=== PATIENT | female | born 1960 ===

== ENCOUNTER → 2017-02-27 | Outpatient (CLI) | payer BC ==
[2014-04-27 08:42] VITALS: BMI 28.4
[~2017-02-27] MED LIST: ACET-2007 PO; AMLO-96 PO; ASPI81TA94 PO; BLOO1STR16 MC; CEFT2FRO4 IV; Ciprofloxacin PO; DOCU-202 PO; DOCU240C67 PO; ENOX40DI8 SQ; ESTR0.62 PO; FLU45SYR17 IM; FLU45SYR25 IM ONLY; FLUC100T39 PO; FLUO-177 PO; FLUO-202 PO; GLIP-152 PO; HUM100VI2 SUBQ; HYDR-385 PO; HYDR-4309 PO; HYDR25TA66 PO; INSU100I28 SQ; INSU100I30 SQ; INSU100I35 SQ; INSU100V24 SQ; LACT1CAP64 PO; LEVE500T73 PO; METF-420 PO; METF500T4 PO; MORP4CAR IVP; NEED-396 MC; NO MEDS; OXYB5TAB86 PO; PER PO; PIPE3.3714 IV; VANC1PLA IV; [UNRECOGNIZED DRUG - CODE] MC; [UNRECOGNIZED DRUG - REMARK]
[2017-02-27 10:14] LABS: LDL CHOLESTEROL 83 mg/dl
== END ==
LOC: LAB 09:04
PROVIDERS: ATTEND Internal Medicine
DX: E11.8 Type 2 diabetes mellitus with unspecified complications (principal)
CPT/HCPCS: 36415; 82040; 82247; 82310; 82374; 82435; 82465; 82565; 82947; 83036; 83718; 84075; 84132; 84155; 84295; 84450; 84460; 84478; 84520

== ENCOUNTER → 2017-07-01 | Outpatient (CLI) | payer BC ==
[2014-04-27 08:42] VITALS: BMI 28.4
[~2017-07-01] MED LIST changes: -METF-420 PO; +METF-421 PO
== END ==
LOC: LAB 13:48
PROVIDERS: ATTEND Internal Medicine
DX: E11.8 Type 2 diabetes mellitus with unspecified complications (principal)
CPT/HCPCS: 36415; 82040; 82247; 82310; 82374; 82435; 82565; 82947; 83036; 84075; 84132; 84155; 84295; 84450; 84460; 84520

== ENCOUNTER → 2017-11-06 | Outpatient (CLI) | payer MEDICARE, BC ==
[2014-04-27 08:42] VITALS: BMI 28.4
[~2017-11-06] MED LIST changes: +AMLO-111 PO; -AMLO-96 PO; +FLU60SYR36 IM; +FLUO-176 PO; -METF-421 PO; +METF-452 PO
[2017-11-06 13:17] LABS: LDL CHOLESTEROL 77 mg/dl
== END ==
LOC: LAB 12:38
PROVIDERS: ATTEND Internal Medicine
DX: E11.8 Type 2 diabetes mellitus with unspecified complications (principal)
CPT/HCPCS: 36415; 82040; 82247; 82310; 82374; 82435; 82465; 82565; 82947; 83036; 83718; 84075; 84132; 84155; 84295; 84450; 84460; 84478; 84520

== ENCOUNTER → 2017-11-18 | Outpatient (CLI) | payer MEDICARE, BC ==
[2014-04-27 08:42] VITALS: BMI 28.4
--- NOTE | 2017-11-19 10:45 | RADIOLOGY IMAGING REPORT ---
[facility] PATIENT NAME: MAE VAZQUEZ : [id number] MR: [id number] V: [id number] EXAM DATE: [id number] ORDERING PHYSICIAN: NATE BRADSHAW TECHNOLOGIST: Mariza Johansen PROCEDURE:BILATERAL DIGITAL SCREENING MAMMOGRAM WITH CAD ASSISTED INTERPRETATION & 3D TOMOSYNTHESIS COMPARISON:None. INDICATIONS:screening FINDINGS: A small amount of fibroglandular tissue is seen throughout the breasts. In the lateral portion of the Right breast on the Right CC view is a focal area of increased density for which Spot compression view is recommended. In the upper portion of the Right breast on the Right MLO view there is an additional focal area of increased density for which Spot compression view is recommended. DIAGNOSTIC CATEGORY 0--INCOMPLETE: NEED ADDITIONAL IMAGING EVALUATION. RECOMMENDATIONS: ADDITIONAL MAMMOGRAPHIC VIEWS REQUIRED: RIGHT BREAST. IMPRESSION: BIRADS 0: Incomplete. Additional views of the Right breast recommended. Dictated by: Autumn Perez M.D. on 11/18/2017 at 17:12 Transcribed by: MORAIMA on 11/19/2017 at 8:35 Approved by: Autumn Perez M.D. on 11/19/2017 at 10:43 [facility]
== END ==
LOC: MAMO 02:20
PROVIDERS: ATTEND Internal Medicine
DX: Z12.31 Encounter for screening mammogram for malignant neoplasm of breast (principal); R92.8 Other abnormal and inconclusive findings on diagnostic imaging of breast
CPT/HCPCS: 77063; 77067

== ENCOUNTER → 2017-12-01 | Outpatient (CLI) | payer MEDICARE, BC ==
[2014-04-27 08:42] VITALS: BMI 28.4
[~2017-12-01] MED LIST changes: -HYDR-4309 PO; +HYDR-653 PO
--- NOTE | 2017-12-02 08:17 | RADIOLOGY IMAGING REPORT ---
FACILITY: [facility] [place] PATIENT NAME: MAE VAZQUEZ : [id number] MR: [id number] V: [id number] EXAM DATE: [id number] ORDERING PHYSICIAN: NATE BRADSHAW TECHNOLOGIST: Mariza Johansen PROCEDURE:RIGHT DIGITAL DIAGNOSTIC MAMMOGRAM WITH CAD ASSISTED INTERPRETATION & 3D TOMOSYNTHESIS COMPARISON:Prior mammogram 11/18/17. INDICATIONS:FURTHER EVAL FINDINGS: The patient returns for Spot compression views in the Right CC & MLO projections in addition to a mediolateral view of the Right breast. The focal area of increased density in the upper outer quadrant of the Right breast appeared partially compressible. So it is much less prominent on the mediolateral view and likely represented a summation shadow. There is no demonstration of malignant appearing mass or calcification in the Right breast. DIAGNOSTIC CATEGORY 1--NEGATIVE. RECOMMENDATIONS: ROUTINE MAMMOGRAM AND CLINICAL EVALUATION. IMPRESSION: BIRADS 1: Negative. No significant abnormality is seen in the Right breast. Dictated by: Autumn Perez M.D. on 12/01/2017 at 15:57 Transcribed by: MORAIMA on 12/02/2017 at 7:59 Approved by: Autumn Perez M.D. on 12/02/2017 at 8:17 [facility]
== END ==
LOC: MAMO 00:14
PROVIDERS: ATTEND Internal Medicine
DX: R92.8 Other abnormal and inconclusive findings on diagnostic imaging of breast (principal)
CPT/HCPCS: 77061; 77065

== ENCOUNTER → 2017-12-09 | Outpatient (CLI) | payer MEDICARE, BC ==
[2014-04-27 08:42] VITALS: BMI 28.4
== END ==
LOC: LAB 11:10
PROVIDERS: ATTEND Pharmacist Pharmacotherapy
DX: E11.8 Type 2 diabetes mellitus with unspecified complications (principal); Z83.3 Family history of diabetes mellitus
CPT/HCPCS: 36415; 82947; 84681

== ENCOUNTER → 2018-03-30 | Outpatient (CLI) | payer MEDICARE, BC ==
[2014-04-27 08:42] VITALS: BMI 28.4
[~2018-03-30] MED LIST changes: -AMLO-111 PO; +AMLO-125 PO; +NOVOLOG SUBQ; +[UNRECOGNIZED DRUG - SUPPLY]
== END ==
LOC: LAB 15:26
PROVIDERS: ATTEND Nurse Practitioner Family
DX: E11.8 Type 2 diabetes mellitus with unspecified complications (principal)
CPT/HCPCS: 36415; 83036

== ENCOUNTER 2018-04-02 13:35 | Outpatient (RCR) | payer MEDICARE, BC ==
[2014-04-27 08:42] VITALS: Ht 157.5 cm; Wt 87.1 kg
--- NOTE | 2018-02-23 16:14 | Medical Nutrition Therapy ---
Nutrition Anthropometrics Height (Inches): 62 Weight (Pounds): 192 BMI: 35.1 Kiran Nutrition Score: Kiran Nutrition Risk Score: Dietary Referral Nutrition Risk Factors: Nutrition Risk Comment: Nutrition/Food History Breakfast: 1c Oj + cereal/milk or oatmeal/raisin or egg Lunch: soup, sandwihc or employee relations administrator slad Dinner: meat,1/2-1c starch, veg Snacks: PM and HS: banana + apple+ orange, occ popcorn Nutritional Education Nutrition Education Topic: Diabetic Nutrition Learning Readiness: Eager Teaching Methods: Discussion, Handout, Demonstration Response to Teaching: Verbalize understanding, Reinforcement needed Teaching Recipient: Patient Nutrition Counseling: Pt will be recieving insulin pump. Has never had education for CHO counting. Reviewed what are CHO. Glycemic response to CHO, and how CHO counting is used in insulin pump. Pt states BG always withn range in morning and afternoon and high in evening. Reviewed typical day. Pt eats ~ 30-45gm CHO brgy, 30gm CHO lunch and 95gm after 5:00 PM with supper and snack. Discussed how insulin pump operates. Made appt for 03/02 @ 2:20 to set up insulin pump. Encoruaged pt to review instruction book and play with pump to become familar prior to eduction. Nutrition Monitoring & Eval RD Patient Assessment Time: [address] Assessment Type: RD Education Nutritional Comment: Provided 45 minute diabetic education focusing on nutrition. Copies To Copies to: NATE BRADSHAW MD ; MOSHE TAO Feb 23, 2018 16:13
--- NOTE | 2018-03-21 11:46 | Medical Nutrition Therapy ---
Nutritional Education Nutrition Education Topic: Diabetic Nutrition Learning Readiness: Eager Teaching Methods: Discussion, Demonstration Response to Teaching: Verbalize understanding Teaching Recipient: Patient Nutrition Counseling: Provided insulin pump education. Provided education on Bolus Wizard, preset bolus, temp basal, infusion set insertion, site selection, CHO counting, Hypoglycemia rule of 15, hyperglycemia management , sick day management, BG testing The following setting were made: Basal: 1.25 Max Basal: 2 Max Bolus: 12 Carb ratio: 8 Preset bolus: 5 Insulin Sensitivity factor: 30 Pt didn't bring insulin with her so was unable to fill reserviour and connect to pump. Recommend pt use pump this week as if it was attached inputting meals and BG readings. Appt scheduled for 03/29 @ 1:00 to complete training of filling reserviour and attach pt to pump. Nutrition Monitoring & Eval RD Patient Assessment Time: [address] Assessment Type: RD Education Nutritional Comment: Provided 75 minute insulin pump education Copies To Copies to: NATE BRADSHAW MD ; MOSHE TAO Mar 21, 2018 11:46
[~2018-04-02] VITALS: Ht 157.5 cm; Wt 87.1 kg
--- NOTE | 2018-04-02 13:49 | Medical Nutrition Therapy ---
Nutritional Education Nutrition Education Topic: Diabetic Nutrition (insulin pump education) Learning Readiness: Eager, Interested Teaching Methods: Discussion, Demonstration Response to Teaching: Verbalize understanding Teaching Recipient: Patient Nutrition Counseling: late entry for 04/01/18: Reviewed pump settings: Basal 1.1 Max basal 2 CHO ration 8 preset Bolis 5 ISF 30 Max bolis 12 Filled reservor and attached pump. Pt was able to correctly fill reservor and attach pump. Verbalized understanding of basal and how to correctly use bolis wizard. BG 254 when left clinic at 3:30. Pt was able to give corrction dose 04/02/18 09:30 24 hr phone call f/u: 04/01 before dinner, BG 202 04/01 after dinner, 181 04/01 bedtime 263 04/02 2:00 AM 136 04/02 8:00 AM 96 Pt will maintain curretn setting and cont testing 7X/day. Will f/u 24 hrs. Nutrition Monitoring & Eval RD Patient Assessment Time: [address] Assessment Type: RD Education Nutritional Comment: Provided 75 minute insulin pump education Copies To Copies to: NATE BRADSHAW MD ; MOSHE TAO Apr 02, 2018 13:49
--- NOTE | 2018-04-06 14:48 | Medical Nutrition Therapy ---
Nutritional Education Nutrition Education Topic: Diabetic Nutrition (insulin pump) Learning Readiness: Interested Teaching Methods: Discussion, Demonstration Response to Teaching: Verbalize understanding Teaching Recipient: Patient Nutrition Counselin day f/u. Pt was having confusion with changing reservor and tubing. Pt came to [facility] and reviewed procedure. Pt was able to successfully change tubing and insert infusion set. BG's are running high in evening 04/03 395 before dinner ( pt did not give bolis after sweet drink); 04/04 265 befor dinner, 04/05 265 befor dinner. Other BG's are within acceptable range however pt is only checking before breakfast and 2:00 AM. Pt has been skipping lunch so not taking BG Instucted pt to take BG before and after each meal and to take BG in afternoon even if she doesn't eat so we can get a better understanding when her BG elevates. Pt may need a high basal in afternoon. Will cont to work with pt for 1 month and encoruaged pt to f/u with Dr Joshua Gallego in [facility] for insulin pump management. Nutrition Monitoring & Eval RD Patient Assessment Time: [address] Assessment Type: RD Education Nutritional Comment: Provided 30 minute insulin pump education Copies To Copies to: NATE BRADSHAW MD ; MOSHE TAO Apr 06, 2018 14:48
[2018-04-06] MEDS ORDERED: NEED1DIS64 MC (16:14)
[2018-04-06] MEDS ORDERED: BLOO-1511 MC (16:20)
== END 2018-04-28 10:50 | disposition home or self-care (01) ==
LOC: DIET 13:35
PROVIDERS: ATTEND Internal Medicine
DX: Z71.3 Dietary counseling and surveillance (principal); E11.8 Type 2 diabetes mellitus with unspecified complications
CPT/HCPCS: G0108

== ENCOUNTER → 2018-06-28 | Outpatient (CLI) | payer MEDICARE ==
[2014-04-27 08:42] VITALS: BMI 28.4
[~2018-06-28] MED LIST changes: +BLOO-1511 MC; +BLOO1STR38 MC; +NEED1DIS64 MC; +OXYB5TAB80 PO
[2018-06-28 15:25] LABS: PLATELET COUNT, AUTOMATED 308 K/uL (150-450)
== END ==
LOC: LAB 15:00
PROVIDERS: ATTEND Nurse Practitioner Family
DX: E11.8 Type 2 diabetes mellitus with unspecified complications (principal)
CPT/HCPCS: 36415; 82040; 82247; 82310; 82374; 82435; 82565; 82947; 83036; 84075; 84132; 84155; 84295; 84443; 84450; 84460; 84520; 85025

== ENCOUNTER → 2018-08-26 | Outpatient (CLI) | payer MEDICARE ==
[2014-04-27 08:42] VITALS: BMI 28.4
== END ==
LOC: RESP 19:52
PROVIDERS: ATTEND Nurse Practitioner Family
DX: G47.33 Obstructive sleep apnea (adult) (pediatric) (principal); G47.61 Periodic limb movement disorder; G47.36 Sleep related hypoventilation in conditions classified elsewhere

== ENCOUNTER → 2018-09-25 | Outpatient (CLI) | payer MEDICARE, MEDICAID ==
[2014-04-27 08:42] VITALS: BMI 28.4
== END ==
LOC: RESP 20:51
PROVIDERS: ATTEND Nurse Practitioner Family
DX: G47.33 Obstructive sleep apnea (adult) (pediatric) (principal); G47.36 Sleep related hypoventilation in conditions classified elsewhere; G47.61 Periodic limb movement disorder